=== PATIENT | female | born 1990 | race Caucasian/White ===

== ENCOUNTER 2016-04-17 16:00 | Outpatient (RCR) | payer OTHER ==
[2016-06-04] MEDS ORDERED: PERCOCET 325 MG1 TA2 PO (13:06)
[2016-06-04] MEDS ORDERED: ZOFRAN ODT8 M1 PO (13:06)
[2016-06-04] MEDS ORDERED: LITHIUM 30300 MG/CAP PO (13:36)
[2016-06-04] MEDS ORDERED: FIORICET1 CAP PO (13:39)
[2016-06-04] MEDS ORDERED: TOPAMAX200 M1 PO (13:41)
[2016-06-23] MEDS ORDERED: MEDROL DOSEPAK4 MG PO (15:31)
[2016-06-23] MEDS ORDERED: PEPCID 20MG TAB20 MG PO (15:31)
[2016-06-23] MEDS ORDERED: ZYRTEC10 M3 PO (15:31)
[2016-07-05 17:16] VITALS: BP 103/61
== END 2016-09-17 | disposition home or self-care (01) ==
LOC: PT
DX: Z47.89 Encounter for other orthopedic aftercare (principal); M25.859 Other specified joint disorders, unspecified hip

== ENCOUNTER 2016-06-04 12:26 | Emergency (ER) | payer OTHER ==
[2016-06-04] MEDS ORDERED: ZOFRAN ODT8 M1 PO (13:06)
[2016-06-04] MEDS ORDERED: PERCOCET 325 MG1 TA2 PO (13:06)
[2016-06-04] MEDS ORDERED: LITHIUM 30300 MG/CAP PO (13:36)
[2016-06-04] MEDS ORDERED: FIORICET1 CAP PO (13:39)
[2016-06-04] MEDS ORDERED: TOPAMAX200 M1 PO (13:41)
== END 2016-06-04 13:25 | disposition home or self-care (01) ==
LOC: ED 12:26
DX: G43.909 Migraine, unspecified, not intractable, without status migrainosus (principal)
CPT/HCPCS: J1885; J2550

== ENCOUNTER 2016-06-23 13:51 | Emergency (ER) | payer OTHER ==
[~2016-06-23 13:51] MED LIST: FIORICET1 CAP PO; LITHIUM 30300 MG/CAP PO; PERCOCET 325 MG1 TA2 PO; TOPAMAX200 M1 PO; ZOFRAN ODT8 M1 PO
[2016-06-23] MEDS ORDERED: PEPCID 20MG TAB20 MG PO (15:31)
[2016-06-23] MEDS ORDERED: MEDROL DOSEPAK4 MG PO (15:31)
[2016-06-23] MEDS ORDERED: ZYRTEC10 M3 PO (15:31)
[2016-06-23 15:35] VITALS: BP 104/67
== END 2016-06-23 15:47 | disposition home or self-care (01) ==
LOC: ED 13:51
DX: J30.5 Allergic rhinitis due to food (principal); T78.1XXA Other adverse food reactions, not elsewhere classified, initial encounter
CPT/HCPCS: J2930

== ENCOUNTER 2016-06-30 15:55 | Outpatient (RCR) | payer OTHER ==
[~2016-06-30 15:55] MED LIST changes: +MEDROL DOSEPAK4 MG PO; +PEPCID 20MG TAB20 MG PO; +ZYRTEC10 M3 PO
== END 2016-07-24 08:31 | disposition home or self-care (01) ==
LOC: PT 15:55
DX: M25.859 Other specified joint disorders, unspecified hip (principal)

== ENCOUNTER 2016-07-05 14:50 | Emergency (ER) | payer OTHER ==
[2016-07-05 17:16] VITALS: BP 103/61
== END 2016-07-05 17:04 | disposition home or self-care (01) ==
LOC: ED 14:50
DX: R51 Headache (principal); M26.609 Unspecified temporomandibular joint disorder, unspecified side
CPT/HCPCS: J1885; J2550; J7030